=== PATIENT | female | born 1995 | race Caucasian/White ===

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

== ENCOUNTER 2018-02-16 18:24 | Emergency (ER) | payer OTHER ==
[~2018-02-16] VITALS: Ht 160 cm; Wt 62.1 kg
[~2018-02-16 18:24] MED LIST: ALBU18HF INH; BECL8.7A6 INH; birth control PO
[2018-02-16] MEDS ORDERED: DIPHENHYDRAMINE 50 MG/ML, 1ML ONE (18:38)
[2018-02-16] MEDS ORDERED: FAMOTIDINE 20 MG/2 ML ONE (18:38)
[2018-02-16] MEDS ORDERED: DEXAMETHASONE 4 MG/ML, 1ML ONE (18:38)
[2018-02-16] MEDS ORDERED: DEXAMETHASONE 4 MG/ML, 1ML IVPush ONE (19:00)
[2018-02-16] MEDS ORDERED: FAMOTIDINE 20 MG/2 ML IVPush ONE (19:00)
[2018-02-16] MEDS ORDERED: SODIUM CHLORIDE FLUSH 10ML SYR IVF ONE (19:00)
[2018-02-16] MEDS ORDERED: DIPHENHYDRAMINE 50 MG/ML, 1ML IVPush ONE (19:00)
[2018-02-16 20:25] VITALS: BP 115/61
== END 2018-02-16 20:27 | disposition home or self-care (01) ==
LOC: ED 20:15
DX: T78.3XXA Angioneurotic edema, initial encounter (principal); X58.XXXA Exposure to other specified factors, initial encounter; Y93.89 Activity, other specified; Y92.89 Other specified places as the place of occurrence of the external cause; Y99.8 Other external cause status
CPT/HCPCS: 96374; 96375; 99284; J1100; J1200; J3490